=== PATIENT | male | born 1985 | race Caucasian/White ===

== ENCOUNTER 2018-05-07 20:35 | Emergency (ER) | payer MEDICAID ==
[~2018-05-07] VITALS: Ht 180.3 cm; Wt 98.0 kg
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
[2018-05-07] MEDS ORDERED: IV NORMAL SALINE 1000 ML BAG IV ONE (21:15)
[2018-05-07] MEDS ORDERED: MORPHINE SULFATE 2 MG/1 ML DISP.SYRIN IV ONE (21:15)
[2018-05-07] MEDS ORDERED: ONDANSETRON 4 MG/2 ML VIAL IV ONE (21:15)
--- NOTE | 2018-05-07 21:25 | NUR ---
Rad. tech. at bedside for imaging
[2018-05-07 21:28] LABS: BASOPHILS # (AUTO) 0.1 K/uL (0.0-8.0); BASOPHILS % (AUTO) 0.6 % (0.0-2.0); EOSINOPHILS # (AUTO) 0.1 K/uL (0.0-0.7); LYMPHOCYTES # (AUTO) 1.5 K/uL (20.0-40.0); LYMPHOCYTES % (AUTO) 13.4 % (20.5-51.5); MEAN CORPUSCULAR HGB CONC 34 g/dL (32.5-36.3); MEAN CORPUSCULAR VOLUME 87.8 fL (73.0-96.2); MONOCYTES # (AUTO) 1.2 K/uL (2.0-10.0); MONOCYTES % (AUTO) 10.1 % (0.0-11.0); NEUTROPHILS # (AUTO) 8.5 K/uL (1.8-8.9); NEUTROPHILS % (AUTO) 74.9 % (38.5-71.5); PLATELET COUNT (AUTO) 288 K/uL (152-348); RED BLOOD CELL COUNT(AUTO) 5.01 MIL/uL (4.06-5.63); WHITE BLOOD COUNT (AUTO) 11.4 K/uL (3.6-10.2)
[2018-05-07] MEDS ORDERED: ONDANSETRON 4 MG/2 ML VIAL ONE (21:29)
[2018-05-07] MEDS ORDERED: MORPHINE SULFATE 2 MG/1 ML DISP.SYRIN ONE (21:30)
[2018-05-07] MEDS ORDERED: IOHEXOL 300MG/ML 100 ML INFUS..BTL ONE (21:31)
[2018-05-07] MEDS ORDERED: NORMAL SALINE FLUSH 10 ML DISP.SYRIN ONE (21:31)
[2018-05-07] MEDS ORDERED: IV NORMAL SALINE 250 ML IV ONE (21:31)
[2018-05-07] MEDS ORDERED: SWABABLE VALVE TRANSFER SET EA MC ONE (21:31)
[2018-05-07 21:37] LABS: POTASSIUM 3.5 mmol/L (3.5-5.1)
[2018-05-07 21:43] LABS: BILIRUBIN,DIRECT 0.1 mg/dL (0.0-0.2); BILIRUBIN,TOTAL 0.5 mg/dL (0.2-1.0); TOTAL PROTEIN, SERUM 7.7 g/dL (6.4-8.2)
--- NOTE | 2018-05-07 22:17 | NUR ---
Pt. taken off unit for CT via stretcher by [place].
--- NOTE | 2018-05-07 22:37 | NUR ---
Pt. back from CT
[2018-05-08] MEDS ORDERED: IBUPROFEN 800 MG TABLET PO ONE
[2018-05-08] MEDS ORDERED: IBUPROFEN 800 MG TABLET ONE (00:05)
--- NOTE | 2018-05-08 00:33 | NUR ---
Note undone in EDM - 05/08/18 at 0038 by [place] Patient discharged to home in stable conditon. Written and verbal after care instructions given. Patient verbalizes understanding of instructions. Pt. d/c w/ prescription per MD order, d/c papers signed, all belongings w/ pt., homeless documentation resources given and signed - pt. will return in the morning for assistance by the social welfare administrator, ambulated out of ED w/ steady gait, ID/IV removed, NAD,
--- NOTE | 2018-05-08 00:38 | NUR ---
Patient discharged to home in stable conditon. Written and verbal after care instructions given. Patient verbalizes understanding of instructions. Pt. d/c w/ prescription per MD order, d/c papers signed, all belongings w/ pt., ID/IV removed, ambulated w/ steady gait off unit accompanied by mother, instructed not to drive, NAD,
== END 2018-05-08 00:41 | disposition home or self-care (01) ==
LOC: ER 20:35
DX: S13.4XXA Sprain of ligaments of cervical spine, initial encounter (principal); S49.92XA Unspecified injury of left shoulder and upper arm, initial encounter; S39.91XA Unspecified injury of abdomen, initial encounter; S29.9XXA Unspecified injury of thorax, initial encounter; S59.902A Unspecified injury of left elbow, initial encounter; M25.561 Pain in right knee; M25.562 Pain in left knee; V49.9XXA Car occupant (driver) (passenger) injured in unspecified traffic accident, initial encounter; Y93.89 Activity, other specified; Y92.89 Other specified places as the place of occurrence of the external cause; Y99.8 Other external cause status
CPT/HCPCS: 36415; 71045; 72125; 73030; 73080; 73110; 74177; 80048; 80076; 85025; 85730; 96374; 96375; 99284; J2270; J2405; Q9967; A4663; J3490; J7030; J7050